=== PATIENT | male | born 1965 | race Caucasian/White ===

== ENCOUNTER 2017-06-17 12:33 | Emergency (ER) | payer OTHER ==
[~2017-06-17] VITALS: Ht 175.3 cm; Wt 95.9 kg
[~2017-06-17 12:33] MED LIST: ACET-1256 PO; IBUP-1050 PO; MECL1TAB42 PO
[2017-06-17 12:37] VITALS: TEMP 36.4; Ht 175.3 cm; Wt 95.9 kg
[2017-06-17] MEDS ORDERED: MECLIZINE HCL 25 MG TAB PO STA (12:46)
[2017-06-17] MEDS ORDERED: SODIUM CHLORIDE 0.9% 1000ML 2,000 ML IV STA (12:46)
[2017-06-17 12:50] VITALS: O2SAT 100
[2017-06-17 13:08] LABS: BASO % 0.8 %; BASO ABS # 0.05 K/uL (0-0.2); COMPLETE YES; EOS % 1.4 %; IG% 0.3 %; LYMPH % 33.4 %; LYMPH ABS # 2.17 K/uL (1.2-3.4); MEAN CELL VOLUME 91.5 fL (80-100); MEAN CORPUSCULAR HEMOGLOBIN 31.3 pg (25-34); MEAN CORPUSCULAR HGB CONC 34.2 g/dl (32-36); MEAN PLATELET VOLUME 10.1 fL (7.4-10.4); MONO % 5.9 %; NEUT % 58.2 %; PLATELET COUNT 264 K/uL (130-400); WHITE BLOOD COUNT 6.49 K/uL (4.8-10.8)
--- NOTE | 2017-06-17 13:09 | DIAGNOSTIC IMAGING REPORT ---
CHEST ONE VIEW PORTABLE HISTORY: 52 years-old Male Chest Pain COMPARISON: Portable chest radiograph 11/02/2014 TECHNIQUE: Portable upright AP view of the chest FINDINGS: Cardiomediastinal and hilar silhouettes are within normal limits. There is no pneumothorax, pleural effusion or focal airspace consolidation. No overt pulmonary edema. The bones are grossly intact. IMPRESSION: No acute cardiopulmonary process. The above report was generated using voice recognition software. It may contain grammatical, syntax or spelling errors. Electronically signed by: Luis M Howard M.D. 06/17/2017 1:08 PM Dictated Date/Time: 06/17/2017 1:07 PM
--- NOTE | 2017-06-17 13:17 | DIAGNOSTIC IMAGING REPORT ---
HEAD WITHOUT CONTRAST (CT) CLINICAL HISTORY: 52 years-old Male with dizzy . Bradycardia with acute dizziness. TECHNIQUE: Multiple axial CT images of the head were obtained without contrast. A dose lowering technique was utilized adhering to the principles of ALARA. CT DOSE: 788.63 mGycm COMPARISON: None. FINDINGS: No acute intracranial hemorrhage, midline shift, mass, large territorial ischemia or abnormal extra-axial collection. The calvarium is intact. The paranasal sinuses, mastoid air cells, and middle ear cavities are clear. IMPRESSION: No acute intracranial abnormality. The above report was generated using voice recognition software. It may contain grammatical, syntax or spelling errors. Electronically signed by: uLis M Howard M.D. 06/17/2017 1:16 PM Dictated Date/Time: 06/17/2017 1:14 PM
[2017-06-17 13:25] LABS: BLOOD UREA NITROGEN 10 mg/dl (7-18); BUN/CREATININE RATIO 12.7 (10-20); CALCIUM 9.2 mg/dl (8.5-10.1); CARBON DIOXIDE 26 mmol/L (21-32); CHLORIDE 102 mmol/L (98-107); CREATININE 0.79 mg/dl (0.60-1.40); GLUCOSE 105 mg/dl (70-99); POTASSIUM 4.1 mmol/L (3.5-5.1); SODIUM 136 mmol/L (136-145)
[2017-06-17] MEDS ORDERED: OMEG10007 PO (13:55)
[2017-06-17] MEDS ORDERED: ASPI81TA28 PO (13:55)
[2017-06-17] MEDS ORDERED: LISI-725 PO (13:55)
[2017-06-17] MEDS ORDERED: DIPH25CA65 PO (13:55)
[2017-06-17 14:00] VITALS: BP 138/79; PULSE 86; O2SAT 95
--- NOTE | 2017-06-17 16:43 | EMERGENCY ROOM VISIT NOTE ---
History Report prepared by Bernard: Arabella Walker Under the Supervision of: Clarence TaO. First contact with patient: 12:40 Chief Complaint: DIZZY Stated Complaint: LOW HEART RATE, SENT BY OFFICE History of Present Illness The patient is a 52 year old male who presents to the Emergency Room with complaints of constant dizziness beginning early this morning. The patient states that he woke up at 2am with dizziness. He went back to sleep and woke up again at 5am and was still experiencing symptoms. He states that he feels like he is spinning. He also feels lightheaded and states that he is "losing balance. " He denies feeling like the room is spinning. The patient was diagnosed with vertigo two years ago. He typically takes meclizine for this. He took a dose this morning and states that it did not help his symptoms. Movement exacerbates his symptoms, while laying still helps to alleviate them. He went to his PCP this morning for evaluation. The patient's HR was in the 50s at that time and he was sent to the ED for further evaluation. He reports some nausea and sinus congestion. Pt denies headache, change in vision, fevers, chest pain, shortness of breath, vomiting, and diarrhea. No weakness or numbness in in arms or legs. Source of History: patient Onset: this morning Position: other (global) Quality: other (dizziness) Timing: constant Modifying Factors (Worsening): movement Modifying Factors (Relieving): other (laying still) Associated Symptoms: + nausea, No fevers, No headache, No chest pain, No SOB , No vomiting, No diarrhea Note: Pt has HR in 50s. Review of Systems See HPI for pertinent positives & negatives. A total of 10 systems reviewed and were otherwise negative. Past Medical & Surgical Medical Problems: (1) No known problems (2) No significant past medical history Family History FH: HTN (hypertension) FH: cancer FH: diabetes mellitus FH: heart disease Social History Smoking Status: Never Smoker Alcohol Use: other Marital Status: Housing Status: lives with family Occupation Status: employed Current/Historical Medications Scheduled Aspirin (Aspirin Ec), 81 MG PO DAILY Diphenhydramine Hcl (Benadryl Allergy), 1 CAP PO HS Scheduled PRN Acetaminophen (Tylenol), 1,000 MG PO Q6 PRN for Headache or Pain Ibuprofen (Advil), 400 MG PO Q6 PRN for Headache or Pain Meclizine Hcl (Meclizine Hcl), 25 MG PO Q8 PRN for Dizziness or Vertigo Miscellaneous Medications Fish Oil ([place]-3), 1 CAP PO Lisinopril (Zestril), 20 MG PO Allergies Coded Allergies: No Known Allergies (Unverified , 06/17/17) Physical Exam Vital Signs Date Time Temp Pulse Resp B/P (MAP) Pulse Ox O2 Delivery O2 Flow Rate FiO2 06/17/17 14:00 86 16 138/79 95 Room Air 06/17/17 12:58 60 06/17/17 12:50 100 Room Air 06/17/17 12:37 36.4 56 20 196/92 100 Room Air Physical Exam GENERAL: alert, laying in bed, well appearing, well nourished, no distress, non -toxic EYE EXAM: normal conjunctiva, PERRL and EOM's intact, no nystagmus EARS: TMs clear bilaterally. OROPHARYNX: no exudate, no erythema, lips, buccal mucosa, and tongue normal and mucous membranes are moist NECK: supple, no nuchal rigidity, no adenopathy, non-tender LUNGS: Clear to auscultation. Normal chest wall mechanics HEART: no murmurs, S1 normal and S2 normal ABDOMEN: abdomen soft, non-tender, normo-active bowel sounds, no masses, no rebound or guarding. BACK: Back is symmetrical on inspection and there is no deformity, no midline tenderness, no CVA tenderness. SKIN: no rashes and no bruising UPPER EXTREMITIES: upper extremities are grossly normal. LOWER EXTREMITIES: No pitting edema. NEURO EXAM: Normal sensorium, cranial nerves II-XII intact, normal speech, no weakness of arms, no weakness of legs. No drift. Finger to nose intact. Gross sensation intact. Ambulates without difficulty. Reproducible symptoms with rotation of his head to the left or right. Medical Decision & Procedures ER Provider Diagnostic Interpretation: Radiology results as stated below per my review and the radiologist's interpretation: HEAD WITHOUT CONTRAST (CT) CLINICAL HISTORY: 52 years-old Male with dizzy . Bradycardia with acute dizziness. TECHNIQUE: Multiple axial CT images of the head were obtained without contrast. A dose lowering technique was utilized adhering to the principles of ALARA. CT DOSE: 788.63 mGycm COMPARISON: None. FINDINGS: No acute intracranial hemorrhage, midline shift, mass, large territorial ischemia or abnormal extra-axial collection. The calvarium is intact. The paranasal sinuses, mastoid air cells, and middle ear cavities are clear. IMPRESSION: No acute intracranial abnormality. The above report was generated using voice recognition software. It may contain grammatical, syntax or spelling errors. Electronically signed by: Luis M Howard M.D. 06/17/2017 1:16 PM Dictated Date/Time: 06/17/2017 1:14 PM CHEST ONE VIEW PORTABLE HISTORY: 52 years-old Male Chest Pain COMPARISON: Portable chest radiograph 11/02/2014 TECHNIQUE: Portable upright AP view of the chest FINDINGS: Cardiomediastinal and hilar silhouettes are within normal limits. There is no pneumothorax, pleural effusion or focal airspace consolidation. No overt pulmonary edema. The bones are grossly intact. IMPRESSION: No acute cardiopulmonary process. The above report was generated using voice recognition software. It may contain grammatical, syntax or spelling errors. Electronically signed by: Luis M Howard M.D. 06/17/2017 1:08 PM Dictated Date/Time: 06/17/2017 1:07 PM Laboratory Results 06/17/17 12:55 Red Blood Count 4.70, Mean Corpuscular Volume 91.5, Mean Corpuscular Hemoglobin 31.3, Mean Corpuscular Hemoglobin Concent 34.2, Mean Platelet Volume 10.1, Neutrophils (%) (Auto) 58.2, Lymphocytes (%) (Auto) 33.4, Monocytes (%) (Auto) 5.9, Eosinophils (%) (Auto) 1.4, Basophils (%) (Auto) 0.8, Neutrophils # (Auto) 3.78, Lymphocytes # (Auto) 2.17, Monocytes # (Auto) 0.38, Eosinophils # (Auto) 0.09, Basophils # (Auto) 0.05 06/17/17 12:55 Test 06/17/17 12:55 White Blood Count 6.49 K/uL (4.8-10.8) Red Blood Count 4.70 M/uL (4.7-6.1) Hemoglobin 14.7 g/dL (14.0-18.0) Hematocrit 43.0 % (42-52) Mean Corpuscular Volume 91.5 fL (80-100) Mean Corpuscular Hemoglobin 31.3 pg (25-34) Mean Corpuscular Hemoglobin Concent 34.2 g/dl (32-36) Platelet Count 264 K/uL (130-400) Mean Platelet Volume 10.1 fL (7.4-10.4) Neutrophils (%) (Auto) 58.2 % Lymphocytes (%) (Auto) 33.4 % Monocytes (%) (Auto) 5.9 % Eosinophils (%) (Auto) 1.4 % Basophils (%) (Auto) 0.8 % Neutrophils # (Auto) 3.78 K/uL (1.4-6.5) Lymphocytes # (Auto) 2.17 K/uL (1.2-3.4) Monocytes # (Auto) 0.38 K/uL (0.11-0.59) Eosinophils # (Auto) 0.09 K/uL (0-0.5) Basophils # (Auto) 0.05 K/uL (0-0.2) RDW Standard Deviation 42.6 fL (36.4-46.3) RDW Coefficient of Variation 12.7 % (11.5-14.5) Immature Granulocyte % (Auto) 0.3 % Immature Granulocyte # (Auto) 0.02 K/uL (0.00-0.02) Anion Gap 8.0 mmol/L (3-11) Est Creatinine Clear Calc Drug Dose 125.0 ml/min Estimated GFR () 119.7 Estimated GFR (Non- 103.2 BUN/Creatinine Ratio 12.7 (10-20) Calcium Level 9.2 mg/dl (8.5-10.1) Troponin I < 0.015 ng/ml (0-0.045) Laboratory results per my review. Medications Administered Medications (Trade) Dose Ordered Sig/Sunshine Route Start Time Stop Time Status Last Admin Dose Admin Sodium Chloride 2,000 ml @ 999 mls/hr Q2H1M STAT IV 06/17/17 12:46 06/17/17 14:46 DC 06/17/17 13:01 999 MLS/HR Meclizine HCl (Antivert Tab) 25 mg NOW STAT PO 06/17/17 12:46 06/17/17 12:48 DC 06/17/17 12:59 25 MG ECG Indication: bradycardia Rate (beats per minute): 53 Rhythm: sinus bradycardia Findings: no ectopy, other (poor baseline) ED Course ED COURSE: Vital signs were reviewed and showed hypertensive. The patients medical record was reviewed The above diagnostic studies were performed and reviewed. ED treatments and interventions as stated above. 1240: The patient was evaluated in room A2. A complete history and physical examination was performed. 1246: Meclizine HCl 25 mg PO, NSS 2000 ml @ 999 mls/hr IV 1329: I updated the patient at this time. His blood pressure has improved. 1417: Upon reevaluation, the patient is feeling better and resting comfortably. I discussed my findings with the patient and he understands and agrees with the treatment plan. Based on the patients age, coexisting illnesses, exam and lab findings the decision to treat as an outpatient was made. The patient remained stable while under my care. The patient appeared well at the time of discharge. Medical Decision Differential diagnosis includes etiologies such as benign positional vertigo, dehydration, hypovolemia, anemia, tumor, infection, hypoglycemia, electrolyte abnormalities, cardiac sources, intracerebral event, toxicologic, neurologic, as well as others were entertained. Patient is a 52-year-old male with a past medical history of vertigo that presents the ER for dizziness referred in by [facility]. He was sent in as he is found to have a low heart rate in the mid 50s. Upon presentation to the ER his vitals were remarkable for hypertension and bradycardia. Patient was able to cannulate into room without difficulty. All sitting in bed he is completely asymptomatic. With rotation of his head symptoms were reproducible. He was completely neurologically intact. CT head was negative. His no risk factors for cerebellar stroke/disease. Patient was given fluids and Antivert. While resting in the ER his systolic blood pressures to down to the 160s and 130s. I believe his hypertension was secondary to being symptomatic and the dizziness. I do not believe that this was a hypertensive emergency as it resolved on its own. He had no focal deficit. Again I watched him ambulate without difficulty. Patient requests to be discharged on 2 separate occasions. He was feeling significantly better. He notes his back to his baseline. Based on his symptoms I do feel this is most consistent with peripheral vertigo as it is present with movement of his head and positional changes. Patient family were updated at bedside. He notes he still has Antivert at home. Patient was discharged significant improvement follow-up with PCP for his SBP and vertigo. He was instructed not to drive for the remainder of the day. Discussed with Pt concerning signs and symptoms to watch out for. Pt was instructed to follow up with their PCP and discussed with the patient their option to return to the ED at anytime for persistent or worsening symptoms. The appropriate anticipatory guidance and out-patient management, including indications for return to the emergency department, were explained at length to the patient and understood. Medication Reconcilliation Current Medication List: was personally reviewed by me Blood Pressure Screening Patient's blood pressure: Elevated blood pressure Blood pressure disposition: Elevated BP felt to be situational Impression Primary Impression: Vertigo Scribe Attestation The scribe's documentation has been prepared under my direction and personally reviewed by me in its entirety. I confirm that the note above accurately reflects all work, treatment, procedures, and medical decision making performed by me. Departure Information Dispostion Home / Self-Care Referrals Unique Joseph M.D. (MEDICAL) (PCP) Forms IMPORTANT VISIT INFORMATION Patient Instructions ED BPV Vertigo, My [facility] Additional Instructions Please follow up with your primary care doctor or if you are a student, [facility] with in the next 24 hours. Any worsening of your symptoms, please return to the ED immediately. This includes any fevers greater than 100.4, change in vision, worsening dizziness, weakness or numbness in arms or legs, persistent nausea, vomiting, unable to eat or drink, or any other concerning signs or symptoms from your standpoint. You were found to have a blood pressure greater than 120 systolic over 90 diastolic. Due to the new Medicare guidelines, we are now recommending that you follow up with your primary care doctor in regards to this elevated blood pressure.
== END 2017-06-17 14:28 | disposition home or self-care (01) ==
LOC: C.EDB 12:34 → C.EDA 14:28
DX: R42 Dizziness and giddiness (principal); Z82.49 Family history of ischemic heart disease and other diseases of the circulatory system; Z83.3 Family history of diabetes mellitus; Z79.82 Long term (current) use of aspirin